=== PATIENT | female | born 1960 | race African-American/Black ===

== ENCOUNTER 2021-09-14 08:58 | Inpatient (IN) | payer OTHER ==
[~2021-09-14] VITALS: Ht 162.6 cm; Wt 97.1 kg
--- NOTE | ~2021-09-14 | EMS ---
[place] [address] EMS Patient Care Report Name: CELESTE MOLINA Room #: 170-8 ADM IN M.R.#: [id number] Admission: 09/14/21 Attend Phys: Andry Ferris MD Discharge: Date of : 60 Report #: [id number] THIS REPORT FOR: //name// Report Transmitted: 09/14/2021 10:38 EMS Care Summary [place], [place] Incident [id number] @ 09/14/2021 08:31 Incident Location [address] Patient ROLANDO MOLINA Female, 61 Years 1960 Patient Address [address] [place] [address] Patient History Diabetes,Hypertension (HTN), Patient Allergies No known allergies, Chief Complaint SOB Disposition Transported No Lights/[place] Dispatch Reason Breathing Problem Transported To [facility] Narrative pt found seated in wheelchair, laboring to breathe. pt states she started to feel SOB this AM when she was taking her to the Dr. she is progressively getting more SOB. Dr office employees state they sat pt into a wheelchair and put her on as her RA 02 was 89%. pt denies CP, reports recent increased in pedal edema. pt systolic pressure will not ms. pt diastolic BP is @ 130. pt is current on her HTN meds. [place] [address] EMS Patient Care Report Name: CELESTE MOLINA Room #: 1708 ADM IN ..#: [id number] Admission: 09/14/21 Attend Phys: Andry Ferris MD Discharge: Date of : 60 Report #: [id number] closest open ER. pt moved to [facility] as listed in flow chart, transport w/ change to [facility]. report to staff rm 9 Initial Vitals @PTASpO2: 89, @08:44P: 111,R: 28,BP: 299/139,Pain: 0/10,GCS: 15,CO: 3,SpO2: 97,Revised Trauma: 12, @08:53P: 110,R: 28,BP: 299/123,CO: 1,SpO2: 98, Assessments @08:38MENTAL:No Abnormalities,SKIN:Diaphoresis,HEENT:Head/Face: No Abnormalities,LUNG SOUNDS:ABDOMEN:PELVIS//GI:EXTREMITIES:Left Leg: Edema,Right Leg: Edema,PULSE:NEURO:No Abnormalities, Impression Acute Respiratory Distress (Dyspnea) Procedures @08:38 ALS Assessment Response: Unchanged @08:40 Stretcher Response: Unchanged @08:42 3-Lead ECG Response: Unchanged @08:47 IV Therapy - Saline Lock 10cc (20 ga) Site: Antecubital-Right Response: UnchangedSucceeded @08:46 Albuterol - 2.5 Milligrams (mg) - Nebulized Response: Unchanged @08:46 Atrovent - 0.5 Milligrams (mg) - Nebulized Response: Unchanged @PTAOxygen FlowRate: 2 Device: Nasal Cannula (NC) Response: ImprovedSucceeded Timeline BOARD CERTIFIED ARTS THERAPIST,Oxygen FlowRate: 2 Device: Nasal Cannula (NC) Response: ImprovedSucceeded, BOARD CERTIFIED ARTS THERAPIST,BP: 230/ M,PULSE: ,RR: R,SPO2: 89 Ox,ETCO2: ,BG: ,PAIN: ,GCS: , 08:31,Call Received 08:31,Dispatch Notified 08:31,Dispatched 08:33,En Route 08:37,On Scene 08:38,At Patient 08:38,ALS Assessment,Response: Unchanged 08:40,Stretcher,Response: Unchanged 08:42,3-Lead ECG,Response: Unchanged 08:44,BP: 299/139 M,PULSE: 111,RR: 28 R,SPO2: 97 Ox,ETCO2: ,BG: ,PAIN: 0,GCS: 15, 08:46,Albuterol - 2.5 Milligrams (mg) - Nebulized,Response: Unchanged 08:46,Atrovent - 0.5 Milligrams (mg) - Nebulized,Response: Unchanged 08:47,IV Therapy - Saline Lock 10cc 20 ga Site: Antecubital-Right,Response: UnchangedSucceeded, [facility] [address] [place] [address] EMS Patient Care Report Name: CELESTE MOLINA Room #: 170-8 ADM IN M.R.#: [id number] Admission: 09/14/21 Attend Phys: Andry Ferris MD Discharge: Date of : 60 Report #: [id number] 08:48,Depart Scene 08:53,BP: 299/123 M,PULSE: 110,RR: 28 R,SPO2: 98 Ox,ETCO2: ,BG: ,PAIN: ,GCS: , 08:55,At Destination 09:09,Call Closed Disclaimer v1.1 Copyright 2020 [employer] This EMS Care Summary contains data elements from the applicable legal record (which may be displayed differently). It is designed to provide pertinent information for the following purposes: continuity of care, clinical quality, and state data reporting. The complete legal record is available to ED staff and administrators of the receiving hospital in [email or web address]'s Patient Tracker. All data is provided "as is."
[2021-09-14 09:01] VITALS: BP 243/114
[2021-09-14 09:13] LABS: ABSOLUTE NEUTROPHILS 4.3 thou/uL (1.4-8.2); BASOPHILS 1.1 % (0.0-2.0); EOSINOPHILS 2.9 % (0.0-3.0); HEMATOCRIT 36.7 % (37.0-47.0); HEMOGLOBIN 11.5 gm/dL (12.0-15.0); LYMPHOCYTES 36.1 % (24.0-44.0); MCH 25.8 pg (26.0-34.0); MCHC 31.2 g/dL (28.0-37.0); MCV 82.6 fL (80.0-100.0); MONOCYTES 5.2 % (1.0-8.0); PLATELET COUNT 292 thou/uL (150-400); POLYS 54.7 % (36.0-66.0); RBC 4.45 mil/uL (4.20-5.00); RDW 15.5 % (10.5-14.5); WBC 7.9 thou/uL (4.0-11.0)
[2021-09-14 09:37] LABS: ANION GAP 10 mmol/L (7-16); BUN 16 mg/dL (7-18); CALCIUM 8.3 mg/dL (8.5-10.1); CHLORIDE 108 mmol/L (98-107); CO2 26 mmol/L (21-32); CREATININE 0.9 mg/dL (0.6-1.0); GLUCOSE 136 mg/dL (74-106); POTASSIUM 3.8 mmol/L (3.5-5.1); SODIUM 144 mmol/L (136-145)
[2021-09-14 09:46] LABS: ALBUMIN 2.8 g/dL (3.4-5.0); DIRECT BILIRUBIN < 0.1 mg/dL (<0.1-0.2); LIPASE 139 U/L (73-393); SGOT 23 U/L (15-37); SGPT 22 U/L (30-65); TOTAL BILIRUBIN 0.5 mg/dL (0.2-1.0); TOTAL PROTEIN 6.9 g/dL (6.4-8.2)
[2021-09-14 09:47] LABS: BE(vivo) 1.3 mmol/L (-2 to +3); HCO3 25.9 mmol/L (22.0-26.0); PCO2 40.8 mmHg (35.0-45.0); PO2 99.6 mmHg (80.0-100.0); sO2 97.6 % (92.0-98.0)
[2021-09-14 10:37] LABS: URINE BILIRUBIN NEGATIVE (Negative); URINE BLOOD 2+ (Negative); URINE CLARITY CLEAR; URINE COLOR YELLOW; URINE GLUCOSE-RANDOM* NEGATIVE (Negative); URINE KETONES NEGATIVE (Negative); URINE LEUKOCYTES-REFLEX TRACE (Negative); URINE PROTEIN (DIPSTICK) 2+ (Negative); URINE SPECIFIC GRAVITY 1.025 (1.005-1.035); URINE UROBILINOGEN 0.2 E.U./dl (0.2-1.0)
[2021-09-14 10:53] LABS: URINE NITRITE-REFLEX POSITIVE (Negative)
[2021-09-14 11:19] LABS: SQUAMOUS >10 Many /LPF (0-3)
[2021-09-14 11:20] LABS: BACTERIA-REFLEX >30 Many /HPF (None Seen); CASTS None Seen /LPF (None Seen); CRYSTALS None Seen /LPF (None Seen); URINE RBC 3-10 Few /HPF (NONE SEEN)
[2021-09-14 11:39] VITALS: BP 199/99
[2021-09-14] MEDS ORDERED: METFORMIN HCL500 M3 PO (11:53)
[2021-09-14] MEDS ORDERED: LISINOPRIL10 MG PO (11:53)
--- NOTE | 2021-09-14 14:20 | EKG ---
[address] [place] [address] ELECTROCARDIOGRAM REPORT Name: CELESTE MOLINA Room #: 170-8 ADM IN M.R.#: [id number] Admission: 09/14/21 Attend Phys: Andry Ferris MD Discharge: Date of : 60 Report #: [id number] [facility] ED Test Date: 2021-09-14 Test Time: 09:03:48 Pat Name: CELESTE MOLINA Department: Room: 170 Gender: F [employer]: GINA : 1960 Requested By: Rudy Armijo Order Number: [id number] MD: Bharath Dash Measurements Intervals [place] Rate: 107 P: 77 ID: 180 QRS: -16 QRSD: 81 T: QT: 339 QTc: 453 Interpretive Statements Sinus tachycardia Atrial premature complex Borderline left axis deviation Anteroseptal infarct, old Borderline repolarization abnormality Baseline wander in lead(s) V4 No previous ECG available for comparison Electronically Signed On 09-14-2021 14:19:59 CDT by Bharath Dash [email or web address] <ELECTRONICALLY SIGNED> By: Bharath Dash MD, [facility] 09/14/21 1419 2 2 Bharath Dash MD, FAC /EPI
[2021-09-14 18:29] VITALS: BP 157/73
[2021-09-14 18:49] VITALS: BP 168/86
[2021-09-14 19:15] VITALS: BP 151/69
[2021-09-15] VITALS (7 sets, daily range): BP systolic 125–166; BP diastolic 62–91
--- NOTE | 2021-09-15 01:06 | NUR ---
PT ADMITTED TO 3, ARRIVED TO UNIT AT APPROXIMATELY 1845. PT IS A&OX4, PLEASANT AND COOPERATIVE. CARDIOLOGY CONSULTED FOR SUSPECTED NEW ONSET HEART FAILURE, ECHO PENDING. ADMISSION ASSESSMENTS COMPLETED. WILL CONTINUE TO MONITOR
--- NOTE | 2021-09-15 05:31 | NUR ---
PT IS A&OX4, ADMITTED YESTERDAY EVENING. PT IS CALM, COOPERATIVE, AND PLEASANT. SINUS RHYTHM ON THE MONITOR THROUGHOUT THE NIGHT WITH A FEW PERIODS OF ASYMPTOMATIC BRADYCARDIA. SHE IS UP TO BEDSIDE COMMODE WITH STANDBY ASSIST, STEADY GAIT NOTED. ARRIVED ON 1L O2 PER NC, WAS ABLE TO BE TITRATED TO RA, BUT THEN SATS DROPPED TO 90-91 WHILE ASLEEP, REPLACED NC AT 1L, AND SATS SADI TO 96-98%. PT DID C/O HEADACHE RATED 4/10 THIS AM, RECEIVED TYLENOL X1. CURRENTLY RESTING WITH EYES CLOSED, RESPIRATIONS EVEN AND UNLABORED. WILL CONTINUE TO MONITOR.
[2021-09-15 05:47] LABS: ABSOLUTE NEUTROPHILS 3.4 thou/uL (1.4-8.2); BASOPHILS 0.5 % (0.0-2.0); EOSINOPHILS 2.5 % (0.0-3.0); HEMATOCRIT 30.1 % (37.0-47.0); HEMOGLOBIN 9.7 gm/dL (12.0-15.0); LYMPHOCYTES 37.6 % (24.0-44.0); MCHC 32.3 g/dL (28.0-37.0); MCV 80.7 fL (80.0-100.0); MONOCYTES 6.1 % (1.0-8.0); PLATELET COUNT 240 thou/uL (150-400); POLYS 53.3 % (36.0-66.0); RBC 3.73 mil/uL (4.20-5.00); RDW 15.4 % (10.5-14.5); WBC 6.4 thou/uL (4.0-11.0)
[2021-09-15 06:04] LABS: CALCIUM 7.9 mg/dL (8.5-10.1); CREATININE 0.9 mg/dL (0.6-1.0); POTASSIUM 3.4 mmol/L (3.5-5.1)
[2021-09-15 06:35] LABS: CHOLESTEROL 222 mg/dL (<200); HDL CHOLESTEROL 38 mg/dL (>40); LDL CHOLESTEROL 167 mg/dL (<100); TC:HDL 5.8 Ratio (Not establshd); TRIGLYCERIDE 89 mg/dL (<150); VLDL 18 mg/dL (<40)
[2021-09-15 06:36] LABS: SERUM ASSESSMENT Clear
--- NOTE | 2021-09-15 13:35 | NUR ---
INITIAL ASSESSMENT: Received consult. EMMA reviewed chart and spoke with nursing and attending physician. Pt was admitted from home due to pulmonary edema. Pt is on IV lasix and IV abx. Pt currently on room air. Pt has received the Moderna COVID vaccination. Discharge home is anticipated in 1-2 days. EMMA met with pt at bedside. Introduced role of SW. Pt is alert/orientated x 4. Pt reports she lives at home with her . Prior to admission, pt was independent with ADLs. No use of DME. No hx of services or post-acute placement. Pt does not have a PCP. Pt states she recently started a new job and will be eligible for insurance after 60 days of employment. [employer] to screen pt. SW to provide pt with Health Resource Guide and prescription discount card at time of discharge. Plan is for pt to discharge home when medically stable. EMMA is following to assist as needed with discharge planning.
--- NOTE | 2021-09-15 14:30 | 2DMMODE ---
[facility] [place] [address] 2 D/M-MODE ECHOCARDIOGRAM Name: CELESTE MOLINA Room #: 364-P ADM IN M.R.#: [id number] Admission: 09/14/21 Attend Phys: Andry Ferris MD Discharge: Date of : 60 Report #: [id number] THIS REPORT FOR: cc: ELVIA - Gissel family physician/PCP ELVIA - [facility]issel family physician/PCP Bharath Dash MD [facility] ~ APPROVED REPORT Study performed: 09/15/2021 13:46:45 EXAM: Comprehensive 2D, Doppler, and color-flow Echocardiogram Patient Location: Bedside Room #: 364 Status: routine BSA: 2.03 HR: 61 bpm BP: 150/70 mmHg Rhythm: NSR Other Information Study Quality: Adequate Indications Short of breath, fluid overload, CHF. Hx: DM, HTN, COVID-2020. 2D Dimensions IVSd: 12.00 (7-11mm) LVOT Diam: 20.00 (18-24mm) LVDd: 53.00 mm PWd: 12.00 (7-11mm) Ascending Ao: 29.93 (22-36mm) LVDs: 37.98 (25-40mm) Left Atrium: 40.15 (27-40mm) Volumes Left Atrial Volume (Systole) Single Plane 4CH: 95.05 mL Single Plane 2CH: 82.86 mL LA ESV Index: 46.00 mL/m2 Aortic Valve AoV Peak Davon.: 1.30 m/s AO Peak Gr.: 6.80 mmHg LVOT Max P.91 mmHg LVOT Max V: 1.11 m/s AARON Vmax: 2.57 cm2 [facility] [address] [place] [address] 2 D/M-MODE ECHOCARDIOGRAM Name: MOLINACELESTE Room #: 364-P [facility] IN [facility]#: [id number] Admission: 09/14/21 Attend Phys: Andry Ferris MD Discharge: Date of : 60 Report #: [id number] Mitral Valve E/A Ratio: 2.1 MV Decel. Time: 203.23 ms MV E Max Davon.: 1.22 m/s MV A Davon.: 0.58 m/s MV PHT: 58.94 ms IVRT: 107.27 ms Pulmonary Valve PV Peak Davon.: 0.88 m/s PV Peak Gr.: 3.09 mmHg Pulmonary Vein P Vein S: 0.34 m/s P Vein A: 0.26 m/s P Vein D: 0.39 m/s P Vein A Dur.: 93.4 msec P Vein S/D Ratio: 0.87 Tricuspid Valve TR Peak Davon.: 2.62 m/s RAP Estimate: 12.00 mmHg TR Peak Gr.: 27.45 mmHg PA Pressure: 39.00 mmHg Left Ventricle The left ventricle is normal size. Mild concentric left ventricular hypertrophy. Left ventricular systolic function is mildly decreased. LVEF is 45%. Right Ventricle The right ventricle is normal size. RV function appears low normal. Atria Left atrium is mildly dilated. The right atrium size is normal. Aortic Valve The aortic valve is normal in structure. No aortic regurgitation is present. There is no aortic valvular stenosis. Mitral Valve The mitral valve is normal in structure. Mild mitral regurgitation. Tricuspid Valve The tricuspid valve is normal in structure. Mild tricuspid regurgitation. Estiamted PAP is 35-40mmHg. [facility] [address] [address] [place] [address] 2 D/M-MODE ECHOCARDIOGRAM Name: CELESTE MOLINA Room #: 364-P [facility] IN .R.#: [id number] Admission: 09/14/21 Attend Phys: Andry Ferris MD Discharge: Date of : 60 Report #: [id number] Pulmonic Valve The pulmonary valve is normal in structure. Mild pulmonic regurgitation. Great Vessels The aortic root is normal in size. The ascending aorta is normal in size. IVC is normal in size and collapses >50% with inspiration. Pericardium There is no pericardial effusion. Bilateral pleural effusions noted. <Conclusion> Normal left ventricle size with mild LVH Mild global hypokinesis ejection fraction 45% Normal right ventricle size/function Mild left atrial enlargement Normal aortic valve structure and function Mild mitral valve insufficiency Mild tricuspid valve insufficiency Pulmonary systolic pressure estimated at 35-40 mmHg No pericardial effusion Normal aortic root size Pleural effusion noted <ELECTRONICALLY SIGNED> By: Bharath Dash MD, FACC 09/15/211429 29 29 Bharath Dash MD, FACC /INF
--- NOTE | 2021-09-15 17:51 | NUR ---
CARE ASSUMED THIS AM, PT AL;ERT AND ORIENTED X4, DENIES ANY CHEST PAIN, NAUSEA AND VOMITTING. CURRENTLY ON ROOM AIR. PT BP IS STABLE NOW. UP TO BSC INDEPENDENTLY. ANTICIPATING FOR DISCHARGE TOMORROW.
[2021-09-16 04:47] VITALS: BP 155/68
--- NOTE | 2021-09-16 07:42 | NUR ---
PT IS A&OX4, PLEASANT AND COOPERATIVE. PT IS LOOKING FORWARD TO DISCHARGE. UP TO BATHROOM WITH SBA, GAIT STEADY. CONTINUES ON ROOM AIR WITH O2 SATS >94%.
[2021-09-16 08:03] VITALS: BP 161/72
[2021-09-16] MEDS ORDERED: BENICAR40 MG PO (08:25)
[2021-09-16] MEDS ORDERED: LIPITOR40 MG PO (08:25)
[2021-09-16] MEDS ORDERED: ALDACTONE50 MG PO (08:25)
[2021-09-16] MEDS ORDERED: DEMADEX20 MG PO (08:25)
[2021-09-16] MEDS ORDERED: NORVASC10 MG PO (08:25)
[2021-09-16] MEDS ORDERED: TOPROL XL50 MG PO (08:25)
[2021-09-16 10:32] LABS: CALCIUM 8.5 mg/dL (8.5-10.1); CREATININE 1.1 mg/dL (0.6-1.0); POTASSIUM 3.6 mmol/L (3.5-5.1)
[2021-09-16] MEDS ORDERED: CEPHALEXIN500 MG PO (11:16)
[2021-09-16 11:38] VITALS: BP 144/57
[2021-09-16 12:40] VITALS: BP 144/57
--- NOTE | 2021-09-16 13:26 | NUR ---
DISCHARGE NOTE: SW reviewed chart and spoke with nursing and attending physician. Pt is medically stable for discharge home today. SW met with pt at bedside to discuss discharge plan. Pt is aware and in agreement with discharge plan. [facility]. Pt denies needing financial support for meds. Pt's family will provide transportation home. Health Resource Guide provided to pt for review to establish primary care until her insurance through her employer is active. Pt was screened by [employer] and is not eligible for Medicaid. No additional SW needs identified at this time, but is available to assist should needs arise.
== END 2021-09-16 13:35 | disposition home or self-care (01) | DRG 291 ==
LOC: ER 08:58 → EROBS 11:29 → 3W 18:57
PROVIDERS: Nurse Practitioner; Nurse Practitioner Adult Health; Student in an Organized Health Care Education/Training Program; ADMIT Hospitalist; ATTEND Hospitalist
DX: I11.0 Hypertensive heart disease with heart failure (principal); J96.01 Acute respiratory failure with hypoxia; E46 Unspecified protein-calorie malnutrition; J81.1 Chronic pulmonary edema; I50.9 Heart failure, unspecified; I16.0 Hypertensive urgency; E11.9 Type 2 diabetes mellitus without complications; E66.9 Obesity, unspecified; Z68.36 Body mass index [BMI] 36.0-36.9, adult
CPT/HCPCS: 10879